=== PATIENT | female | born 1990 | race Caucasian/White ===

== ENCOUNTER 2021-11-17 13:42 | Day surgery (SDC) | payer OTHER ==
[2021-11-17 15:07] LABS: Fetal Membranes Rupture No Membranes Rupture (No Rupture)
[2021-11-17 16:47] LABS: Bilirubin Neg (Negative); Blood, Urine Negative (Negative); Glucose, Urine (Dipstick) Normal (Negative); Ketone, Urine Negative (Negative); Leukocyte Negative (Negative); Nitrite Negative (Negative); Protein, Urine (Dipstick) Negative (Neg-Trace); Urobilinogen Normal mg/dL (Less than 2)
[2021-11-17 16:49] LABS: Clarity Clear (Clear)
[2021-11-17] MEDS ORDERED: hydrALAZINE 20 MG/ML VIAL SLOW IVP PRN (17:41)
== END 2021-11-17 17:40 | disposition home or self-care (01) ==
LOC: CSHLD/OP 13:42
PROVIDERS: ATTEND Obstetrics & Gynecology
DX: O47.03 False labor before 37 completed weeks of gestation, third trimester (principal); O99.891 Other specified diseases and conditions complicating pregnancy; M54.9 Dorsalgia, unspecified; Z3A.33 33 weeks gestation of pregnancy; Z79.82 Long term (current) use of aspirin; Z88.5 Allergy status to narcotic agent; Z91.048 Other nonmedicinal substance allergy status
CPT/HCPCS: 81003; 84112; 99283

== ENCOUNTER 2021-12-23 10:12 | Outpatient (CLI) | payer OTHER, BC | END 2021-12-23 10:13 | disposition home or self-care (01) | LOC: CSHLAB 10:12 | PROVIDERS: ATTEND Obstetrics & Gynecology | DX: Z20.822 Contact with and (suspected) exposure to COVID-19 (principal) | CPT/HCPCS: 87811 ==

== ENCOUNTER 2021-12-26 21:09 | Day surgery (SDC) | payer BC ==
[2021-12-26 21:28] VITALS: BMI 44.2
[2021-12-27] MEDS ORDERED: hydrALAZINE 20 MG/ML VIAL SLOW IVP PRN (00:15)
== END 2021-12-26 23:53 | disposition home or self-care (01) ==
LOC: CSHLD/OP 21:09
PROVIDERS: ATTEND Obstetrics & Gynecology
DX: O46.93 Antepartum hemorrhage, unspecified, third trimester (principal); Z3A.38 38 weeks gestation of pregnancy; Z79.82 Long term (current) use of aspirin; Z88.5 Allergy status to narcotic agent; Z91.048 Other nonmedicinal substance allergy status
CPT/HCPCS: 99283

== ENCOUNTER 2021-12-28 05:30 | Inpatient (IN) | payer BC ==
[~2021-12-28 05:30] MED LIST: Acetaminophen 500 MG TAB PO PRN; hydrALAZINE 20 MG/ML VIAL SLOW IVP PRN
[2021-12-28] MEDS ORDERED: Bupivacaine PF 0.5% 30 ML VIAL ONE (08:00)
[2021-12-28] MEDS ORDERED: Butorphanol Tartrate 1 MG/ML VIAL SLOW IVP PRN (10:16)
[2021-12-28] MEDS ORDERED: hydrALAZINE 20 MG/ML VIAL SLOW IVP PRN ×2 (10:16→22:32)
[2021-12-28] MEDS ORDERED: Ondansetron PF 4 MG/2 ML Vial IVP PRN ×3 (10:16→22:32)
[2021-12-28] MEDS ORDERED: HYDROcodone/Acetaminophen 5/325 mg Tablet PO PRN ×2 (10:16→22:32)
[2021-12-28] MEDS ORDERED: Promethazine HCl 25 MG/ML VIAL IM PRN ×2 (10:16→16:51)
[2021-12-28] MEDS ORDERED: Ibuprofen 800 MG TAB PO PRN (10:16)
[2021-12-28] MEDS ORDERED: Lidocaine 1% (PF) 30 ML VIAL SC PRN (10:16)
[2021-12-28] MEDS ORDERED: NS w/ Oxytocin 30 units 500 ML IV SCH ×3 (10:16→23:00)
[2021-12-28 10:19] VITALS: BMI 38.0
[2021-12-28 11:09] LABS: Hemoglobin 11.4 g/dL (12.0-15.5); Mean Corpuscular HGB CONC 34.3 g/dL (32.0-36.0); Mean Corpuscular Hemoglobin 31.2 pg (27.0-33.0); Mean Platelet Volume 10.9 fl (7.4-10.4); Platelet Count 156 10x3/uL (150-450); RBC Distribution Width 12.9 % (11.5-14.5); Red Blood Cell (RBC) Count 3.65 10x6/uL (3.90-5.03); White Blood Cell (WBC) Count 5.9 10x3/uL (3.5-10.5)
[2021-12-28 11:40] LABS: Hep B Surf Ag Non-Reactive S/CO (NonReactive); Syphilis Antibody Nonreactive (Nonreactive); Syphilis Antibody Index 0.06 S/CO (<1.00 Non-Reactive)
[2021-12-28 11:44] LABS: HBSAg Index 0.16 S/CO (0-0.99)
[2021-12-28] MEDS ORDERED: Fentanyl 2 mcg/Bup 0.1% Cadd 100 ML ONE (15:32)
[2021-12-28] MEDS ORDERED: ePHEDrine Sulfate 50 MG/10 ML VIAL SLOW IVP PRN (16:51)
[2021-12-28] MEDS ORDERED: Acetaminophen 325 MG TAB PO PRN (16:51)
[2021-12-28] MEDS ORDERED: Naloxone HCl 0.4 mg/ml Vial IVP PRN ×2 (16:51)
[2021-12-28] MEDS ORDERED: Lactated Ringer's 500 ML IV PRN (16:51)
[2021-12-28] MEDS ORDERED: Moisturizing Cream (Eucerin) 113 GM JAR TOP PRN (16:51)
[2021-12-28] MEDS ORDERED: diphenhydrAMINE 50 MG/ML VIAL IVP PRN (16:51)
[2021-12-28] MEDS ORDERED: Fentanyl 2 mcg/Bupivacaine 0.1% Cassette 100 ML EPIDURAL SCH (17:00)
[2021-12-28] MEDS ORDERED: Communication Order-Pharmacy FS SCH (17:00)
[2021-12-28] MEDS: Lactated Ringer's 1,000 ML IV SCH ×2 (22:30→22:31)
[2021-12-28] MEDS ORDERED: Boostrix 0.5 ML (Tdap) VIAL IM ONE (22:32)
[2021-12-28] MEDS ORDERED: Milk Of Magnesia 30 ML UDCUP PO PRN (22:32)
[2021-12-28] MEDS ORDERED: Lanolin Ointment 7 GM TUBE TOP PRN (22:32)
[2021-12-28] MEDS ORDERED: Preparation H Ointment 28 GM TUBE PR PRN (22:32)
[2021-12-28] MEDS ORDERED: diphenhydrAMINE 25 MG CAP PO PRN (22:32)
[2021-12-28] MEDS ORDERED: Benzocaine-Menthol 82.5 ML CAN TOP PRN (22:32)
[2021-12-28] MEDS ORDERED: Bisacodyl 10 MG SUPP PR PRN (22:32)
[2021-12-28] MEDS ORDERED: Docusate 100 MG CAP PO SCH (23:00)
[2021-12-28] MEDS ORDERED: Ibuprofen 800 MG TAB PO SCH (23:00)
[2021-12-28] MEDS: Ibuprofen 800 MG TAB PO SCH (23:12)
[2021-12-29] MEDS: Ibuprofen 800 MG TAB PO SCH ×3 (05:48→21:59)
[2021-12-29] MEDS: Prenatal Vitamin 1 TAB PO SCH (09:18)
[2021-12-29] MEDS: Docusate 100 MG CAP PO SCH ×2 (09:18→21:59)
[2021-12-29] MEDS: Ferrous Sulfate 325 MG TAB PO SCH ×2 (09:21→15:23)
[2021-12-29] MEDS: HYDROcodone/Acetaminophen 5/325 mg Tablet PO PRN (18:17)
[2021-12-30] MEDS: Ibuprofen 800 MG TAB PO SCH ×3 (05:10→20:04)
[2021-12-30 07:59] VITALS: BP 124/58; TEMP 98.2
[2021-12-30] MEDS: Ferrous Sulfate 325 MG TAB PO SCH ×2 (09:10→16:09)
[2021-12-30] MEDS: Docusate 100 MG CAP PO SCH (09:11)
[2021-12-30] MEDS: Prenatal Vitamin 1 TAB PO SCH (09:11)
[2021-12-30] MEDS: HYDROcodone/Acetaminophen 5/325 mg Tablet PO PRN (09:13)
== END 2021-12-30 21:08 | disposition home or self-care (01) | DRG 807 ==
LOC: EEVIPCON 09:30 → CSHLD 09:30 → CSHPP 23:20
PROVIDERS: ADMIT Obstetrics & Gynecology; ATTEND Obstetrics & Gynecology
PROC: 10E0XZZ Delivery of Products of Conception, External Approach (ICD-10-PCS; principal; 2021-12-28)
PROC: 0KQM0ZZ Repair Perineum Muscle, Open Approach (ICD-10-PCS; 2021-12-28)
PROC: 10907ZC Drainage of Amniotic Fluid, Therapeutic from Products of Conception, Via Natural or Artificial Opening (ICD-10-PCS; 2021-12-28)
PROC: 10H07YZ Insertion of Other Device into Products of Conception, Via Natural or Artificial Opening (ICD-10-PCS; 2021-12-28)
DX: O66.0 Obstructed labor due to shoulder dystocia (principal); Z37.0 Single live birth; Z3A.39 39 weeks gestation of pregnancy; O70.1 Second degree perineal laceration during delivery; Z88.6 Allergy status to analgesic agent; Z91.048 Other nonmedicinal substance allergy status
CPT/HCPCS: 51702; 85027; 86780; 86850; 86900; 86901; 87340; 99283; J0595; J2590; S0020